=== PATIENT | male | born 1990 | race Caucasian/White ===

== ENCOUNTER → 2016-03-31 | Outpatient (CLI) | payer BC ==
--- NOTE | 2016-03-31 14:37 | KCIC ---
PROCEDURE MR of the left knee HISTORY Left knee lateral pain since August. COMPARISON None knee: Standard noncontrast images are obtained. FINDINGS No evidence of a medial or lateral meniscal tear. Anterior cruciate ligament and posterior cruciate ligament are intact. Medial collateral ligament intact. Iliotibial band unremarkable. Fibular collateral ligament, biceps femoris tendon and popliteus tendon are intact. Extensor mechanism is intact. Small joint effusion. No evidence of an osteochondral loose body. No evidence of a bone lesion. No acute fracture. No acute soft tissue injury. No significant Funez cyst. IMPRESSION No evidence of meniscal tear or internal derangement. Electronically signed by: Rogerio Polanco MD (Mar 31, 2016 14:36:28)
== END | disposition home or self-care (01) ==
LOC: KCIC MRI 12:49
PROVIDERS: ATTEND Orthopaedic Surgery Sports Medicine
DX: M25.562 Pain in left knee (principal)
CPT/HCPCS: 73721